=== PATIENT | female | born 1940 | race Caucasian/White ===

== ENCOUNTER 2016-08-17 17:16 | Inpatient (IN) | payer OTHER ==
--- NOTE | ~2016-08-17 | EKG ---
PATIENT: INOCENCIO BRANTLEY UNIT #: [id number] Ventricular Rate: 72 BPM Atrial Rate: 72 BPM P-R Interval: 172 ms QRS Duration: 82 ms Q-T Interval: 378 ms QTC Calculation(Bezet): 413 ms P Bandon: 30 degrees Calculated R Bandon: 5 degrees Calculated T Bandon: 102 degrees Diagnosis Line: Normal sinus rhythm Diagnosis Line: T wave abnormality, consider anterolateral Diagnosis Line: ischemia Diagnosis Line: Abnormal ECG Diagnosis Line: When compared with ECG of 30-DEC-2015 07:50, Diagnosis Line: Nonspecific T wave abnormality now evident in Diagnosis Line: Inferior leads Diagnosis Line: T wave inversion now evident in Anterolateral Diagnosis Line: leads Diagnosis Line: Confirmed by BHAVIK SULLIVAN MD ([id number]) on Diagnosis Line: 08/18/2016 7:59:41 AM INTERPRETING MD: SILVER
--- NOTE | ~2016-08-17 | CT57 ---
[facility] A Service of [facility] & [facility] RADIOLOGY TEXT RESULTS PATIENT: INOCENCIO BRANTLEY LOCATION: [facility] 323- : 39 UNIT #: [id number] AGE: [address]: CINTHIA ANGEL MD SEX: F ORDER DR: [id number] [facility] [address] [place], [place] [address] [id number] I MR#: [id number] Acc #: [id number] NAME: INOCENCIO BRANTLEY. : 1940 SEX: F STUDY DATE/TIME: 08/17/2016 20:57 UNIT: A U ROOM: [facility] STUDY DESCRIPTION: CT Chest Wo Cont Attending Physician: Cinthia Angel M.D. Ordering Physician: Staff Doctor Not On Primary Care Physician: Lew Powell M.D. MEDICAL IMAGING REPORT This report is preliminary unless electronic signature is present EXAM Chest CT. DATE OF EXAM 08/17/2016 at 2057 hours. INDICATIONS Hypoxia. Fever and cough for 1 week. Shortness of air as well. History of asthma. Abnormal chest x-ray this evening showing a possible right upper lobe nodule. TECHNIQUE Axial images were obtained through the chest without contrast. Multiplanar reformats were obtained. NOTE: This CT exam was performed with one or more of the following radiation dose reduction techniques: automatic exposure control, adjustment of mA and/or kV according to patient size, and iterative reconstruction. COMPARISON Comparison made with chest x-ray from earlier today. No comparison chest CT. FINDINGS There are calcified left hilar and mediastinal nodes compatible with old granulomatous disease. No adenopathy is seen. There is no pleural or pericardial effusion. Lung windows demonstrate some scarring or atelectasis in the lower lobes, as well as the right middle lobe and medial right upper lobe. Tree-in-bud infiltrates are faintly noted in the right lower lobe and are concerning for a very mild degree of pneumonia. No suspicious pulmonary nodule is seen. Finding on the earlier chest x-ray is presumably artifact. There is calcified granuloma in the left lower lobe. Upper abdomen shows cholecystectomy. There is pneumobilia which would suggest prior sphincterotomy. Correlate with history. [facility] A Service of [facility] RADIOLOGY TEXT RESULTS PATIENT: INOCENCIO BRANTLEY LOCATION: A 323-01 : 39 UNIT #: [id number] AGE: [address]: CINTHIA ANGEL MD SEX: F ORDER DR: hiatal hernia is present. IMPRESSION 1. No suspicious pulmonary nodule. Finding on chest x-ray is presumably artifact. 2. Subtle tree-in-bud infiltrate in the right lower lobe suggesting a mild pneumonia. 3. Scattered areas of scarring or atelectasis in the lungs. 4. Small hiatal hernia. 6. Old granulomatous disease. 7. Pneumobilia which presumably reflects prior sphincterotomy. Correlate with history. Dictated by... Dany Dawson Jr., M.D. THIS IS AN ELECTRONICALLY VERIFIED REPORT Dany Dawson Jr., M.D. at 08/18/2016 5:28 AM ANDRIA/harriet TD: 08/17/2016 23:14 JOB #: [id number] MEDICAL IMAGING REPORT COPY
--- NOTE | ~2016-08-17 | HP ---
Unit #: [id number] #: [id number] Patient: INOCENCIO BRANTLEY [id number] [address] [place], [place] [address] [id number] I MR#: [id number] NAME: INOCENCIO BRANTLEY. ROOM: 76802 Age: 76 Sex: F Admission Date: 08/17/2016 : 1940 Attending Physician: Hector Angel M.D. Primary Care Physician: Lew Powell M.D. HISTORY AND PHYSICAL CHIEF COMPLAINT Shortness of breath. HISTORY OF PRESENT ILLNESS The patient is a 76-year-old female with a past medical history of choledocholithiasis, status post cholecystectomy and ERCP in the past, who presented to the emergency room complaining of shortness of breath for two weeks. The patient stated that patient was having shortness of breath for the last two weeks; however, for the last few days the patient has started having greenish sputum and having a fever up to 100.8. The patient was seen at [facility] earlier this morning and was told to come to the emergency room. The patient was found to be hypoxic. Patient was on the monitor with saturations of 87% on room air. The patient's chest x-ray a pulmonary nodule and no acute infiltrates. The patient also has a history of asthma and uses inhalers at home, but the inhalers have not been helping her in the last few days. The patient is being admitted for the above reasons. Denies any nausea and denies any vomiting, chest pain, palpitations, or dizziness. PAST MEDICAL HISTORY 1. History of choledocholithiasis. 2. History of pneumonia in the past. PAST SURGICAL HISTORY 1. Cholecystectomy. 2. Left knee scope. 3. ERCP. 4. Bilateral cataracts. HOME MEDICATIONS 1. Actigall. 2. Paxil. 3. [place] Thyroid. SOCIAL HISTORY Denies history of smoking cigarettes, alcohol, or any illicit drug abuse. ALLERGIES SULFA AND CODEINE. FAMILY HISTORY Her sister has diabetes. REVIEW OF SYSTEMS Unit #: [id number] #: [id number] Patient: INOCENCIO BRANTLEY A 14-point review of systems was performed and only pertinent positive findings are described above. The remaining are negative. PHYSICAL EXAMINATION GENERAL: Patient is lying in bed not in acute distress. VITAL SIGNS: Temperature is 99.2, heart rate 70, saturating 87% on room air and went up to 94% on 2 liters, respiratory rate 17, and blood pressure is 140/94. HEENT: Head atraumatic, normocephalic. Pupils equal, round, and reactive to light and accommodation. Extraocular movements are intact. Dry mucous membranes. NECK: Supple. No JVD. LUNGS: Decreased air entry at the bases. Positive for wheezing. HEART: Regular rate and rhythm. ABDOMEN: Soft. Positive bowel sounds. EXTREMITIES: No cyanosis, no clubbing. NEUROLOGIC: Alert, awake, and oriented. No gross focal motor deficit. DIAGNOSTIC STUDIES LABORATORY: Glucose 87, BUN 13, creatinine 0.8, sodium 133, potassium 4.1, chloride 97, bicarb 27, calcium 8.8, AST 37, ALT 28, and alkaline phosphatase 112. Lactic acid is 1.4. WBC 7.2, hemoglobin 13.6, hematocrit 40.5, and platelets 255,000. IMAGING: Chest x-ray shows a 1.2 cm nodule at the right upper lobe. CARDIOLOGY: EKG shows normal sinus rhythm at a rate of 72 beats per minute, P-R interval of 172, nonspecific T wave abnormality, and QTc of 413. ASSESSMENT 1. Hypoxia with 87% on room air. 2. Asthma exacerbation. 3. Hyponatremia. PLAN Admit the patient to inpatient with telemetry. Continue with IV steroid Solu-Medrol 40 mg q.8 and IV antibiotic Zithromax for bronchitis. Continue with DuoNebs and fluids for hyponatremia. Repeat the labs again in the morning. Will check a CT chest without contrast for the worsening shortness of breath and productive cough. Further recommendations will follow as more lab results are available. Dictated by Katarzyna Thomas TD: 08/17/2016 20:44 JOB #: [id number] Unit #: [id number] #: [id number] Patient: INOCENCIO BRANTLEY HISTORY AND PHYSICAL X X HISTORY AND PHYSICAL
--- NOTE | ~2016-08-17 | DS ---
Unit #: [id number] #: [id number] Patient: INOCENCIO BRANTLEY [id number] [address] [address] [id number] I MR#: [id number] NAME: INOCENCIO BRANTLEY. ROOM: 323 Age: 76 Sex: F Admission Date: 08/17/2016 : 1940 Discharge Date: Attending Physician: Rosa Valencia M.D. Primary Care Physician: Lew Powell M.D. DISCHARGE SUMMARY DISCHARGE DIAGNOSES 1. Acute hypoxic respiratory failure. 2. Asthma with exacerbation. 3. Mild hyponatremia, resolved. 4. Right lower lobe pneumonia, community acquired. 5. History of allergies, especially to cats. 6. Hyperglycemia secondary to Solu-Medrol. Patient does not have diabetes. CONSULTATIONS None. PROCEDURES None. DIAGNOSTIC TESTING LAB DATA: Glucose 101, sodium 141, potassium 4.4, creatinine 0.8. WBC 16.4, hemoglobin 11.7, platelets 242. Blood cultures negative. Hemoglobin A1C 5.5. IMAGING: CT of the chest without contrast shows no pulmonary nodule. Right lower lobe pneumonia present. ALLERGIES Pentazocine, sulfa, codeine. DISCHARGE MEDICATIONS 1. Paxil 10 mg at bedtime. 2. Actigall 300 mg t.i.d. 3. [place] Thyroid 120 mg p.o. Monday, Monday, Monday. 4. [place] Thyroid 180 mg p.o. Monday, Monday, and Monday. 5. Doxycycline 100 mg p.o. b.i.d. 6. Albuterol Mini-Neb q.i.d. p.r.n. shortness of breath. 7. Prednisone tapering dose. HOSPITALIZATION COURSE A 76-year-old admitted because of shortness of breath. Acute hypoxic respiratory failure from pneumonia and asthma. Currently resolved. She is saturating 94% on room air. I am going to check her ambulatory pulse oximetry. Right lower lobe pneumonia, community acquired. Patient received Rocephin and Azithromycin. Currently afebrile. WBC normal. Patient will be Unit #: [id number] #: [id number] Patient: INOCENCIO BRANTLEY discharged on doxycycline for 2 more days. Asthma with exacerbation. Started on DuoNeb and IV Solu-Medrol. Currently lungs clear. Breathing better. The patient will be discharged on DuoNeb and prednisone tapering dose. Hyperglycemia. No diabetes. Hemoglobin A1C normal. Most likely secondary to Solu-Medrol. Hyponatremia. Resolved. DISCHARGE PLAN 1. The patient will be discharged home with home health. 2. Check home O2 needs. 3. Follow with family physician in 1 week. 4. Follow with pulmonary of choice in 4 weeks. 5. The patient might need to see an allergy doctor if her allergies do not get better in 3-4 weeks. 6. Currently she is stable without any acute medicines. Dictated by... Katarzyna Tejeda/jesus TD: 08/19/2016 15:18 JOB #: [id number] DISCHARGE SUMMARY X Rosa Valencia MD X DISCHARGE SUMMARY
--- NOTE | ~2016-08-17 | CR72 ---
[facility] A Service of [facility] RADIOLOGY TEXT RESULTS PATIENT: INOCENCIO BRANTLEY LOCATION: [facility] 323- : 39 UNIT #: [id number] AGE: [address]: Rosa Valencia MD SEX: F ORDER DR: [id number] [facility] [address] [place], [place] [address] [id number] I MR#: [id number] Acc #: [id number] NAME: INOCENCIO BRANTLEY. : 1940 SEX: F STUDY DATE/TIME: 08/17/2016 17:45 UNIT: [address] ROOM: [facility] STUDY DESCRIPTION: CR Chest Single View Portable Attending Physician: Hector Angel M.D. Ordering Physician: Sarthak Leggett M.D. Primary Care Physician: Lew Powell M.D. MEDICAL IMAGING REPORT This report is preliminary unless electronic signature is present EXAM AP view of the chest, 08/18/2016 COMPARISON November 04, 2009 INDICATION 76-year-old female with dyspnea and fever for 2 weeks. Diagnosis of pneumonia. FINDINGS Cardiomediastinal silhouette is normal. Calcified granuloma again noted in the left lung. No evidence of pneumothorax or pleural effusion. No evidence of consolidative pneumonia. There is a questionable new noncalcified nodule in the right upper lobe measuring up to 1.2 cm. IMPRESSION 1. A questionable new 1.2 cm nodule in the right upper lobe. This may be better evaluated with PA and lateral views of the chest. If this is not performed nonemergent outpatient CT chest is recommended for further characterization. 2. No evidence of pneumonia, pneumothorax or pleural effusion. Normal heart size. Dictated by... Tom Ruboi M.D. THIS IS AN ELECTRONICALLY VERIFIED REPORT Tom Rubio M.D. at 08/22/2016 8:45 PM ZAINAB/jen TD: 08/17/2016 21:40 [facility] A Service of [facility] RADIOLOGY TEXT RESULTS PATIENT: INOCENCIO BRANTLEY LOCATION: [facility] 323-01 : 39 UNIT #: [id number] AGE: [address]: Rosa Valencia MD SEX: F ORDER DR: JOB #: [id number] MEDICAL IMAGING REPORT COPY
[~2016-08-17 17:16] MED LIST: ACTIGALL300 MG PO; ARMOUR THYROID60 M1 PO; ASPIRIN EC81 M1 PO; ATORVASTATIN CA20 MG PO; BUMETANIDE1 MG PO; CALCIUM + D 6001 TA1 PO; FISH OIL 1,2001 EAC1 PO; GLUCOTEN CAPLET1 TAB PO; KRILL OIL500 MG PO; MULTI-DAY VITAM1 TAB PO; PAXIL; PAXIL10 MG PO; SYNTHROID; URSODIOL300 MG PO
[2016-08-17 17:31] LABS: BASOPHIL% 0.3 % (0-2.5); EOSINOPHIL% 0.2 % (0.0-7.0); HEMATOCRIT 40.5 % (35.0-45.0); HEMOGLOBIN 13.6 gm/dL (12.0-16.0); LYMPHOCYTE# 1.7 X10e3 (1.0-3.5); LYMPHOCYTE% 23.6 % (17.0-45.0); MEAN CELL VOLUME 90.9 FL (83-96); MEAN CORPUSCULAR HEMOGLOBIN 30.5 PG (28-34); MEAN CORPUSCULAR HGB CONC 33.6 g/dL (30-36); MEAN PLATELET VOLUME 9.9 FL (6.5-11.5); MONOCYTE# 0.8 X10e3 (0-1.0); MONOCYTE% 11.4 % (3.0-12.0); NEUTROPHIL# 4.7 X10e3 (1.5-7.1); NEUTROPHIL% 64.5 % (40-75); PLATELET COUNT 255 X10e3 (140-420); RED BLOOD COUNT 4.46 X10e (3.90-5.30); WHITE BLOOD COUNT 7.2 X10e3 (4.0-10.5)
[2016-08-17 17:36] LABS: DIFF IND NO
[2016-08-17 17:40] LABS: POC - TROPONIN <0.05 ng/mL (<=0.05)
[2016-08-17 17:59] LABS: ALKALINE PHOSPHATASE 112 U/L (32-92); ALT (SGPT) 28 U/L (10-40); AST (SGOT) 37 U/L (10-42); BILIRUBIN, DIRECT 0.2 mg/dL (0.0-0.2); BILIRUBIN,INDIRECT 0.3 mg/dL (0.0-0.9); BILIRUBIN,TOTAL 0.5 mg/dL (0.2-2.0); BLOOD UREA NITROGEN 13 mg/dL (9-23); BUN/CREATININE RATIO 16.25; CALCIUM SERUM 8.8 mg/dL (8.4-10.2); CARBON DIOXIDE 27 mmol/L (22-31); CHLORIDE 97 mmol/L (100-111); CREATININE SERUM 0.8 mg/dL (0.6-1.4); GLOM FILT RATE Estimated ABOVE60 mL/min (>60); GLUCOSE FASTING 87 mg/dL (70-110); POTASSIUM 4.1 mmol/L (3.5-5.1); PROTEIN TOTAL SERUM 7.4 g/dL (6.0-8.3); SODIUM 133 mmol/L (135-145)
[2016-08-18 05:21] LABS: BASOPHIL% 0.1 % (0-2.5); HEMATOCRIT 37.4 % (35.0-45.0); HEMOGLOBIN 12.5 gm/dL (12.0-16.0); LYMPHOCYTE# 1.4 X10e3 (1.0-3.5); LYMPHOCYTE% 16.1 % (17.0-45.0); MEAN CELL VOLUME 91.1 FL (83-96); MEAN CORPUSCULAR HEMOGLOBIN 30.5 PG (28-34); MEAN CORPUSCULAR HGB CONC 33.5 g/dL (30-36); MEAN PLATELET VOLUME 10.1 FL (6.5-11.5); MONOCYTE# 0.2 X10e3 (0-1.0); MONOCYTE% 2.3 % (3.0-12.0); NEUTROPHIL% 81.5 % (40-75); PLATELET COUNT 229 X10e3 (140-420); RED CELL DISTRIBUTION WIDTH 13.3 % (11.0-15.5); WHITE BLOOD COUNT 8.6 X10e3 (4.0-10.5)
[2016-08-18 05:27] LABS: DIFF IND NO
[2016-08-18 06:51] LABS: BUN/CREATININE RATIO 13.63; CALCIUM SERUM 8.7 mg/dL (8.4-10.2); CREATININE SERUM 1.1 mg/dL (0.6-1.4); GLOM FILT RATE Estimated 51.2 mL/min (>60); POTASSIUM 3.7 mmol/L (3.5-5.1)
[2016-08-19 05:29] LABS: HEMATOCRIT 35.5 % (35.0-45.0); HEMOGLOBIN 11.7 gm/dL (12.0-16.0); MEAN CELL VOLUME 91.6 FL (83-96); MEAN CORPUSCULAR HEMOGLOBIN 30.3 PG (28-34); MEAN CORPUSCULAR HGB CONC 33.1 g/dL (30-36); MEAN PLATELET VOLUME 10.4 FL (6.5-11.5); RED BLOOD COUNT 3.88 X10e (3.90-5.30); RED CELL DISTRIBUTION WIDTH 13.2 % (11.0-15.5)
[2016-08-19 05:32] LABS: WHITE BLOOD COUNT 16.4 X10e3 (4.0-10.5)
[2016-08-19 06:49] LABS: BLOOD UREA NITROGEN 21 mg/dL (9-23); BUN/CREATININE RATIO 26.25; CALCIUM SERUM 8.8 mg/dL (8.4-10.2); CARBON DIOXIDE 24 mmol/L (22-31); CHLORIDE 105 mmol/L (100-111); CREATININE SERUM 0.8 mg/dL (0.6-1.4); GLOM FILT RATE Estimated ABOVE60 mL/min (>60); GLUCOSE FASTING 162 mg/dL (70-110); POTASSIUM 4.4 mmol/L (3.5-5.1); SODIUM 141 mmol/L (135-145)
[2016-08-19] MEDS ORDERED: ARMOUR THYROID120 MG PO (15:42)
[2016-08-19] MEDS ORDERED: ARMOUR THYROID180 MG (15:43)
[2016-08-19] MEDS ORDERED: VIBRAMYCIN100 M1 PO (15:46)
[2016-08-19] MEDS ORDERED: ALBUTEROL MININEB (15:47)
[2016-08-19] MEDS ORDERED: PREDNISONE10 MG/DOSE (15:48)
== END 2016-08-19 16:36 | disposition home health service (06) | DRG 193 ==
LOC: CED 17:16 → CEDOF 19:04 → C3A PCU 21:06
PROVIDERS: Emergency Medicine; Internal Medicine
DX: J18.9 Pneumonia, unspecified organism (principal); J96.01 Acute respiratory failure with hypoxia; J45.901 Unspecified asthma with (acute) exacerbation; E87.1 Hypo-osmolality and hyponatremia; R73.9 Hyperglycemia, unspecified; Z88.2 Allergy status to sulfonamides; Z88.5 Allergy status to narcotic agent; Z83.3 Family history of diabetes mellitus
CPT/HCPCS: 36415; 71010; 71250; 80048; 80076; 82553; 82947; 83036; 83605; 84484; 85025; 85027; 87040; 93005; 94640; 94760; 96374; 99285; J0456; J0696; J1650; J1815; J2920; J2930

== ENCOUNTER → 2016-09-27 | Outpatient (CLI) | payer OTHER ==
[~2016-09-27] MED LIST changes: +ALBUTEROL MININEB; +ARMOUR THYROID120 MG PO; +ARMOUR THYROID180 MG; +PREDNISONE10 MG/DOSE; +VIBRAMYCIN100 M1 PO
== END | disposition home or self-care (01) ==
LOC: CRAD 09:40
DX: R13.10 Dysphagia, unspecified (principal); J18.9 Pneumonia, unspecified organism; Z98.49 Cataract extraction status, unspecified eye; Z98.890 Other specified postprocedural states; Z90.49 Acquired absence of other specified parts of digestive tract
CPT/HCPCS: 74230; 92611; G8996-GN; G8997-GN; G8998-GN

== ENCOUNTER → 2017-03-01 | Outpatient (CLI) | payer OTHER ==
--- NOTE | ~2017-03-01 | BD1 ---
[facility] A Service of [facility] & [facility] RADIOLOGY TEXT RESULTS PATIENT: INOCENCIO BRANTLEY LOCATION: [facility] : 39 UNIT #: [id number] AGE: [address]: TRAY MUNOZ MD SEX: F ORDER DR: [id number] [facility] [address] [place], [place] [address] [id number] O MR#: [id number] Acc #: [id number] NAME: INOCENCIO BRANTLEY : 1940 SEX: F STUDY DATE/TIME: 03/01/2017 14:14 UNIT: [facility] ROOM: STUDY DESCRIPTION: BD Dexa Bone Dens 1+ Site Attending Physician: Tray Munoz M.D. Ordering Physician: Tray Munoz M.D. Primary Care Physician: Tray Munoz M.D. MEDICAL IMAGING REPORT This report is preliminary unless electronic signature is present EXAM DXA scan, 03/01/2017. HISTORY Status post menopause with no hormone replacement therapy. Osteopenia. Hyperthyroidism. Thyroid medication. FINDINGS Bone mineral density in the lumbar spine from L1-L4 is 1.002 g/cm2 which is 0.4 standard deviations below the mean when compared to the young adult reference population which is within the range of normal. This is 2.2 standard deviations above the mean when compared to the age-matched population. Compared with 03/18/2014, there has been an increase in bone mineral density in the lumbar spine of 0.8%. Bone mineral density in the left femoral neck was 0.65 g/cm2 which is 1.8 standard deviations below the mean when compared to the young adult reference population which is characteristic of osteopenia. This is 0.4 standard deviations above the mean when compared to the age-matched population. Compared with 03/18/2014, there has been a decrease in bone mineral density in the left hip of 4.1%. IMPRESSION Bone mineral density in the lumbar spine within the range of normal and within the left hip characteristic of osteopenia. Compared with 03/18/2014, there has been an increase in bone mineral density in the lumbar spine and a decrease in bone mineral density in the left hip. Dictated by... Nate Gamboa M.D. [facility]. [facility] A Service of [facility] & [facility] / [facility] RADIOLOGY TEXT RESULTS PATIENT: INOCENCIO BRANTLEY LOCATION: [facility] : 39 UNIT #: [id number] AGE: [address]: TRAY MUNOZ MD SEX: F ORDER DR: THIS IS AN ELECTRONICALLY VERIFIED REPORT Nate Gamboa M.D. at 03/03/2017 7:45 AM ERIBERTO/ezra TD: 03/02/2017 03:17 JOB #: [id number] MEDICAL IMAGING REPORT Page 1 of 1 COPY
== END | disposition home or self-care (01) ==
LOC: CWCC 14:00
DX: Z13.820 Encounter for screening for osteoporosis (principal); M85.88 Other specified disorders of bone density and structure, other site; Z78.0 Asymptomatic menopausal state
CPT/HCPCS: 77080

== ENCOUNTER → 2017-03-01 | Outpatient (CLI) | payer OTHER ==
--- NOTE | ~2017-03-01 | CT57 ---
[facility] A Service of [facility] & [facility] RADIOLOGY TEXT RESULTS PATIENT: INOCENCIO BRANTLEY LOCATION: [facility] : 39 UNIT #: [id number] AGE: [address]: Billie Caal APRN SEX: F ORDER DR: [id number] [facility] [address]. [place], [place] [address] [id number] O MR#: [id number] Acc #: [id number] NAME: INOCENCIO BRANTLEY : 1940 SEX: F STUDY DATE/TIME: 03/01/2017 13:34 UNIT: [facility] ROOM: STUDY DESCRIPTION: CT Chest Wo Cont Attending Physician: Billie Caal A.P.R.N. Referring Physician: Billie Caal A.P.R.N. Ordering Physician: Billie Caal A.P.R.N. Primary Care Physician: Lew Powell M.D. MEDICAL IMAGING REPORT This report is preliminary unless electronic signature is present EXAM CT chest without contrast DATE 03/01/2017 HISTORY Shortness breath since July 2016. Abnormal CT chest in July 2016 with pneumonia. Asthma. History of cardiac disease. COMPARISON CT chest without contrast 08/17/2016 PROCEDURE 5 mL axial images through the chest without contrast. Sagittal and coronal reformatted images were obtained. This CT exam was performed with one or more of the following radiation dose reduction techniques: automatic exposure control, adjustment of mA and/or kV according to patient size, and iterative reconstruction. FINDINGS Chronic paramediastinal linear scarring is demonstrated in the bilateral upper lobes, similar to 08/17/2016. Previously described tree-in-bud nodular densities within right lower lobe have resolved. No acute airspace disease. Benign calcified granuloma in the left lower lobe. No pericardial effusion or pleural effusion or pneumothorax. Benign calcified granulomatous changes in the mediastinum and left hilum. No pathologic adenopathy. Small esophageal hiatal hernia. Mild pneumobilia likely related to previous biliary instrumentation. Small periampullary diverticulum, similar to prior exam. Cholecystectomy. Remainder of included upper abdominal organs are within normal limits. IMPRESSION [facility] A Service of [facility] & [facility] RADIOLOGY TEXT RESULTS PATIENT: INOCENCIO BRANTLEY LOCATION: [facility] : 39 UNIT #: [id number] AGE: [address]: Billie Caal APRN SEX: F ORDER DR: 1. No acute chest findings. Interval resolution of previously described tree-in-bud nodular infiltrates in the right lower lobe since 08/17/2016. 2. Chronic scarring in the paramediastinal upper lobes. 3. Benign calcified granulomatous changes. 4. Cholecystectomy with stable pneumobilia likely reflective of previous biliary instrumentation. 5. Small esophageal hiatal hernia. Dictated by... Samantha Nava M.D. THIS IS AN ELECTRONICALLY VERIFIED REPORT Samantha Nava M.D. at 03/03/2017 8:42 AM [facility]/baron TD: 03/02/2017 19:34 JOB #: [id number] MEDICAL IMAGING REPORT Page 1 of 1 COPY
== END | disposition home or self-care (01) ==
LOC: CCAT 12:47
DX: J45.20 Mild intermittent asthma, uncomplicated (principal); R91.8 Other nonspecific abnormal finding of lung field; E55.9 Vitamin D deficiency, unspecified; K44.9 Diaphragmatic hernia without obstruction or gangrene; Z90.49 Acquired absence of other specified parts of digestive tract
CPT/HCPCS: 71250